=== PATIENT | female | born 1975 | race Caucasian/White ===

== ENCOUNTER 2024-05-10 22:05 | Emergency (ER) | payer OTHER ==
[~2024-05-10] VITALS: Ht 175.3 cm; Wt 85.3 kg
[2024-05-10 22:10] VITALS: TEMP 98.2
[2024-05-11] MEDS: acetaMINOPHEN 500 MG TABLET PO ONE (00:09)
--- NOTE | 2024-05-11 00:13 | ERN ---
ED Note History of Present Illness Stated Complaint: C/O PAIN TO LEFT INDEX FINGER Chief Complaint: Finger Injury Time Seen by MD: 22:22 Time Seen by Midlevel: 22:22 Dictation: The patient is a 48-year-old female with a history of anxiety, asthma, hyst erectomy who presents to the emergency department with complaints of left index finger onset today. Patient denies any trauma. Denies any recent wounds or insect bites. No other complaints reported. Allergies: Coded Allergies: Penicillins (Unverified Allergy, Unknown, 05/10/24) Sulfa (Sulfonamide Antibiotics) (Unverified Allergy, Unknown, 05/10/24) codeine (Unverified Allergy, Unknown, 05/10/24) labetalol (Unverified Allergy, Unknown, 05/10/24) levofloxacin (Unverified Allergy, Unknown, 05/10/24) naproxen (Unverified Allergy, Unknown, 05/10/24) tramadol (Unverified Allergy, Unknown, 05/10/24) Past Medical History Past Medical History: Anxiety, Asthma Surgical History: Hysterectomy Surgical History Other: RT KNEE SX RN Note Reviewed/Agreed w/PFSH: Yes Review of System Dictation Constitutional: Negative for fever,chills, and weight loss Eyes: Negative for injury, pain,redness, and discharge ENT: Negative for injury,pain or swelling Cardiovascular: Negative for chest pain, palpitations, and edema Respiratory: Negative for shortness of breath, cough, and wheezing, Abdomen/GI: Negative for abdominal pain, nausea, vomiting, diarrhea, and constipation Back: Negative for injury and pain : Negative for injury, bleeding and discharge MS/Extremity: Negative for injury and deformity positive for left index finger pain Skin: Negative for rash, and discoloration Neuro: Negative for headache, weakness, numbness, tingling, and seizure Psych: Negative for suicide ideation, homicidal ideation, and hallucinations Initial Vital Sign VS Vital Signs Date Time Temp Pulse Resp B/P (MAP) Pulse Ox O2 Delivery O2 Flow Rate FiO2 05/10/24 22:10 98.2 79 20 238/112 98 Room Air 05/11/24 00:15 0 21 Physical Exam Dictation Vital Signs reviewed General Appearance: Alert, oriented x 3, no acute distress, well developed, nourished. Head and Face: non-traumatic. Eyes: PERRL, pink conjunctivas, eyelid no trauma, anterior chamber with arcus senilis. Ears: Pinnas intact and no signs of trauma or erythema ear canals clear and no discharge TM no erythema Nose: No discharge, no bleeding. Oropharynx: Mouth normal, tongue pink. pharynx clear,no erythema, tonsils no exudates, no abscesses noted, mucous membrane moist Neck: Supple, non-tender, no thyromegaly, no masses, no JVD, no bruits Breast:Deferred Chest:No tenderness, no crepitus, no paradoxical movement, no retractions Lungs:Clear, well-ventilated, symmetric, no rales, no wheezing, no rhonchi, no stridor, good breath sounds bilaterally Heart: Regular rate, regular rhythm, no murmur, no gallops Vascular: no peripheral edema, Abdomen: Soft, positive bowel sounds, nondistended, no guarding, nontender, no rebound, no masses no hepatomegaly, no splenomegaly, no Orantes's sign, no hernias. Rectal: Deferred Genital: Deferred Neurological: Normal speech, motor function intact, sensory function intact Musculoskeletal: Neck nontender, full range of motion, back nontender, full range of motion, Extremities: nontender, full range of motion , left index finger with no contusions, no swelling, full range of motion, cap refill less than 2 seconds Skin: Color pink, dry, no turgor, no rash, no lacerations, no abrasions, no contusions. Lymphatic: Deferred Results (Laboratory/Radiology) Labs Reviewed?: Yes ED Course ED Course Orders Procedure Category Date Status Time Finger(S) 2+Vws Lt RAD 05/10/24 Taken 22:47 Acetaminophen 500mg PHA 05/10/24 Complete Tab (Tylenol 500mg T 23:00 Current Medications Medications (Trade) Dose Ordered Sig/Jihan Route PRN Reason Start Time Stop Time Status Last Admin Dose Admin Acetaminophen (TYLenol 500MG TAB) 1,000 mg ONCE ONCE PO 05/10/24 23:00 05/10/24 23:01 DC 05/11/24 00:09 Vital Signs Date Time Temp Pulse Resp B/P (MAP) Pulse Ox O2 Delivery O2 Flow Rate FiO2 05/11/24 00:15 78 18 152/90 98 Room Air* 0 21 05/10/24 22:10 98.2 79 20 238/112 98 Room Air Medical Decision Making MDM The patient is a 48-year-old female with a history of anxiety, asthma, hysterectomy who presents to the emergency department with complaints of left index finger onset today. Patient denies any trauma. Denies any recent wounds or insect bites. No other complaints reported. Left index finger with no wounds, no erythema, no swelling, full range of motion. patient was hypertensive in ER. Patient reports that she has white coat syndrome and every time she comes to the ER her blood pressure is elevated. Patient denies any chest pain, shortness of breath, headache, nausea or vomiting. No other complaints reported. Patient at this time refuses to have any cardiac workup done or any treatment at for blood pressure. Reports her blood pressure is always high in the ER and at home it is okay. Reports if he tried to fix her blood pressure it is going to go really low. Risks and benefits discussed with the patient who continues to deny any further treatment. BP was better on reassessment. Patient instructed to follow up with PCP. Patient in no acute distress, nontoxic appearance. Differential diagnosis: Phalangeal fracture, phalangeal contusion, strain finger Need for hospitalization: Patient does not meet criteria for hospitalization. There are no social concerns with this patient. DX & DISP Disposition: Discharge Departure Impression: Primary Impression: Strain of left index finger Additional Impression: Finger pain, left Condition: Stable Additional Instructions: FOLLOW-UP WITH PRIMARY CARE PROVIDER IN 1 TO 2 DAYS. TAKE MEDICATIONS DIRECTED HERE IN THE EMERGENCY ROOM. OKAY TO CONTINUE HOME MEDICATIONS UNLESS OTHERWISE DISCUSSED DURING YOUR VISIT IN THE EMERGENCY ROOM TODAY. RETURN TO YOUR NEAREST EMERGENCY ROOM IF SYMPTOMS WORSEN OR IF THERE IS NO IMPROVEMENT. CALL 911 IF YOU NEED IMMEDIATE ASSISTANCE. TAKE TYLENOL [id number] NEEDED AND IF NO CONTRAINDICATIONS ARE PRESENT. INCREASE ORAL HYDRATION. A WOUND CULTURE OR URINE CULTURE WAS ORDERED HERE IN THE EMERGENCY ROOM DEPARTMENT PLEASE FOLLOW-UP WITH PRIMARY CARE PROVIDER AND ADVISE THEM TO GET REPEAT PORTS FROM OUR FACILITY. IF YOU HAD ANY KEN WRAP/SPLINTS THAT WERE APPLIED HERE, PLEASE DO NOT REMOVE THEM UNTIL YOU SEE YOUR PRIMARY CARE OR SPECIALTY. Referrals: TARA JOHNSON (PCP) Time of Disposition: 00:12 I have reviewed the case, and I agree with, Diagnosis and Plan PATRICK URIARTE May 11, 2024 00:13
[2024-05-11 00:15] VITALS: BP 152/90; PULSE 78; RESP 18; O2SAT 98
--- NOTE | 2024-05-11 08:28 | HMCIMG ---
FINGER(S) 2+VWS LT REASON: index pain TECHNIQUE: 3 views were obtained. FINDINGS: There is no evidence of fracture or dislocation. There is no joint effusion. The soft tissues appear unremarkable. There is no evidence of a radiopaque foreign body. IMPRESSION: No acute findings.
== END 2024-05-11 00:34 | disposition home or self-care (01) ==
LOC: EDH 22:05
DX: S56.412A Strain of extensor muscle, fascia and tendon of left index finger at forearm level, initial encounter (principal); J45.909 Unspecified asthma, uncomplicated; Z88.0 Allergy status to penicillin; Z88.1 Allergy status to other antibiotic agents; Z88.2 Allergy status to sulfonamides; Z88.5 Allergy status to narcotic agent; Z88.6 Allergy status to analgesic agent; Z90.710 Acquired absence of both cervix and uterus; X58.XXXA Exposure to other specified factors, initial encounter; Y93.89 Activity, other specified; Y92.89 Other specified places as the place of occurrence of the external cause; Y99.8 Other external cause status
CPT/HCPCS: 73140; 99283

== ENCOUNTER 2024-09-15 22:35 | Emergency (ER) | payer OTHER ==
[~2024-09-15] VITALS: Ht 172.7 cm; Wt 86.2 kg
--- NOTE | 2024-09-15 23:47 | NUR ---
PATIENT INFORMED PRIMARY RN THAT SHE IS NOT HAVING ANY MORE SYMPTOMS OF MUSCLE SPASMS AND WOULD LIKE TO LEAVE ALREADY, STATED,"I DON'T HAVE ANY MORE SPASMS, I DON'T KNOW IF THE HOME REMEDIES I DID WORKED OR WHAT HAPPENED BUT I WOULD LIKE TO LEAVE SO I AM NOT HOLDING THIS BED FOR SOMEONE ELSE THAT NEEDS IT MORE." INFORMED PATIENT THAT THE MD HAS NOT SEEN HER YET AND THIS WOULD BE LEAVING AGAINST MEDICAL ADVICE BECAUSE HER BLOOD PRESSURE IS ELEVATED. PATIENT AND SPOUSE BOTH VOICED THAT THIS IS NORMAL DUE TO HER DX OF WHITE COAT SYNDROME. EDUCATED BOTH PATIENT AND SPOUSE TO CALL 911 OR TO GO TO THE NEAREST ER IF SYMPTOMS OF CHEST PAIN AND SHORTNESS OF BREATHE OCCUR. PATIENT VERBALIZED UNDERSTANDING OF THE RISKS ACCOMPANIED WITH LEAVING AMA AND SIGNED PAPER. NO FURTHER QUESTIONS ASKED AT THIS TIME AND ED CHARGE MADE AWARE AT THIS TIME./JAREN
[2024-09-15 23:51] VITALS: BP 211/105; PULSE 81; RESP 20; TEMP 98.3; O2SAT 95
== END 2024-09-15 23:54 | disposition left against medical advice (07) ==
LOC: EDH 22:35
DX: M62.838 Other muscle spasm (principal); Z53.21 Procedure and treatment not carried out due to patient leaving prior to being seen by health care provider